=== PATIENT | male | born 1950 | race Caucasian/White ===

== ENCOUNTER → 2022-11-19 10:49 | Outpatient (CLI) | payer OTHER, SELFPAY ==
[2022-11-19 12:46] LABS: COVID19 -Nasal RAPID Negative (Negative)
== END ==
PROVIDERS: PCP Student in an Organized Health Care Education/Training Program; Referring Provider Orthopaedic Surgery; Visit Provider Orthopaedic Surgery
DX: Z20.822 Contact with and (suspected) exposure to COVID-19 (principal)
CPT/HCPCS: 87635; C9803

== ENCOUNTER 2022-11-22 09:00 | Day surgery (SDC) | payer OTHER, SELFPAY ==
[2022-11-14 08:22] VITALS: BMI 28.0
[2022-11-22] VITALS (19 sets, daily range): BP systolic 101–138; BP diastolic 61–92; PULSE 56–88; RESP 8–18; TEMP 35.8–36.7; O2SAT 82–100; BMI 26.9
--- NOTE | 2022-11-22 09:18 | DI.RAD.S_ITS ---
PROCEDURE: XR HIP W PEL IF DONE RT 2V INDICATIONS: RIGHT ANTERIOR HIP TECHNIQUE: Intraoperative spot view(s) of the hip acquired. COMPARISON: None. FINDINGS: Intraoperative spot images demonstrate placement of right hip arthroplasty. IMPRESSION: Right hip arthroplasty intraoperative imaging. Dictated by: Maldonado Simons M.D. on 11/22/2022 at 15:27 Approved by: Maldonado Simons M.D. on 11/22/2022 at 15:27
[2022-11-22] MEDS: ACETAMINOPHEN 325 MG TABLET 975 MG PO (09:48)
[2022-11-22] MEDS: CELECOXIB 200 MG CAPSULE PO (09:50)
[2022-11-22] MEDS: LACTATED RINGERS 1,000 ML 42 ML IV (10:10)
[2022-11-22] MEDS: VANCOMYCIN 1,000 MG/200 ML PIGGYBACK 200 MG IV (10:11)
--- NOTE | 2022-11-22 11:00 | PM.PREOP ---
Pre-operative Note COVID-19 COVID-19 status: Negative Interval Note History & Physical reviewed/Exam performed by Physician: Yes Changes to H&P: No
--- NOTE | 2022-11-22 11:00 | PM.OP.1 ---
Operative Date/Time/Diagnoses Date of procedure: 11/22/22 Time of procedure: 11:20 Pre-op diagnosis: Right hip OA Post-op diagnosis: same Procedure & Clinicians Procedure: Right total hip arthroplasty anterior approach Same procedure as scheduled: Yes Indications: The patient has had progressively worsening right hip pain with radiographic changes consistent with arthritis. Non-operative management has failed and the patient has requested total hip replacement. The risks, benefits and alternatives to surgery were discussed with the patient prior to proceeding. Risks discussed included, but were not limited to, failure to relieve pain, leg length discrepancy, dislocation, stiffness, infection, nerve damage, deep venous thrombosis, pulmonary embolism, stroke, coma, heart attack, permanent paralysis and , as well as the potential need for eventual revision of the prosthetic. Surgeon: Miryam Guallpa Mail Reader: Johana Velazquez Anesthesia Type: General and Spinal Operative Notes Findings: Severe right hip OA, adequate stability, Closure Type: primary Specimen(s): none sent Prosthetic devices, grafts, tissues, transplants, or devices: Guallpa and nephew anthology size 9 high offset, 54 mm R3 cup, neutral poly liner, two 6.5 mm screws Estimated Blood Loss (mL): 250 Blood products transfused: none Procedure in detail: The patient was brought to the operating room. Patient was carefully positioned in the supine position. Time-out was performed and antibiotics were given. Anesthesia was induced. He was positioned in the on the table in order to allow hyperextension of the hip. The right lower extremity was prepped and draped in a standard sterile fashion. An anterior right hip incision was made 1 fingerbreadth lateral to the anterior superior iliac spine and extended distally towards the greater trochanter. Dissection was carried out through skin and subcutaneous tissues. Superficial hemostasis was achieved. The fascia over the tensor fascia viviana was defined and incised with a knife. Two Allis clamps were used to grasp the fascia. Tensor fascia viviana was retracted laterally. A gelpi retractor was placed. Dissection was carried out down along the neck. The circumflex vessels were carefully identified and cauterized with the Aqua Mantis. There was good visualization of the femoral neck. A Cobra was placed superior to the neck and the gluteus fibers were carefully stripped from that superior aspect of the capsule. A 2nd retractor was placed along the inferior aspect of the neck. The rectus insertion along the capsule was partially released. A 3rd retractor that was then gently placed over the rim of the acetabulum under the rectus. Capsule was carefully incised and released from the intertrochanteric line circumferentially superior to the mid sagittal line and inferiorly to the mid sagittal line until the lesser trochanter was palpable. A tag stitch was placed both in the superior and inferior limb of the capsular insertion. Along the acetabulum capsule was also released up to the mid sagittal 12:00 position. A portion of the labrum was resected. A saw was used to perform an osteotomy at the level of the intertrochanteric line and the junction of the superior femoral neck leaving approximately 1 finger breath of residual inferior neck above the lesser trochanter. A 2nd cut was made along the femoral neck at the base of the head and a napkin ring of neck was removed. Corkscrew was placed in the femoral head and the head was removed without difficulty. Retractors were then repositioned around the acetabulum. Residual labrum was resected and additional osteophytes were removed. A reamer that was 4 mm below the templated size was placed by hand in the acetabulum and it was reamed to centralize the acetabulum. It was then reamed up to 2 under the templated size and fluoroscopy was brought in to confirm the position of the reaming and depth of reaming. I reamed 1 under the anticipated size. A trial cup was placed and noted that it was appropriately sized and fluoroscopy confirmed position and depth. The component was open and inserted without difficulty fluoroscopic imaging was used to confirm that the cup had been adequately seated and was well positioned. It was further stabilized with a two screws. Neutral poly liner was placed. The cup was tested and noted to be stable. Attention was then directed to the femur. The femur was gently hyperextended additional capsular release was performed as needed in order to allow adequate visualization of the proximal femur with elevation of the femur. Patient was placed in a hyperextended slightly adducted position with maximum external rotation. Box osteotome was used to check for any residual neck as well as sclerotic bone along the trochanter. [place] pepper was placed in the femur. Additional broaching was performed. Canal finder was used to determine the alignment of the canal and position. Size 1 broach was placed. The canal was then appropriately broached up to the templated size as long as there was adequate stability of the broach and serial advancement of the broach without excessive impingement. Specific attention was directed at avoiding varus attempting to direct the distal aspect of the broach more anteriorly and avoiding excessive anteversion. Trial reduction showed acceptable range of motion, good stability, no posterior impingement, gnosticism of leg length and appropriate lateral shuck. I also hyperflexed the hip and checked that there was no impingement anteriorly and there was good stability with flexion, adduction and internal rotation. Marcaine and Exparel were injected. The stem was placed without difficulty. Repeat trial reduction and x-ray showed acceptable overall position, length, and no evidence of the femoral fracture. Final head was placed. Wound was meticulously irrigated with normal saline. The hip was reduced and additional Exparel and Marcaine were injected. The capsule was closed with interrupted nonabsorbable sutures. The fascia of the tensor was closed with interrupted and running Vicryl. No drain was placed. Any tensor fascia viviana muscle that appeared to be contused or injured which was a minimal amount was carefully resected. Capsule around the tensor was injected with Exparel and Marcaine. The skin was closed with barbed stitches for the subcutaneous tissue and skin. We also used surgical glue. The wound was dressed sterilely. Brief Betadine soak was also used and was meticulously irrigated with normal saline. Patient was transferred to recovery room in satisfactory condition. Complications: none Post-operative Condition: stable Disposition: Acute Care Plan for aftercare: The patient will be maintained on a standard total hip replacement protocol with weight bearing as tolerated and anterior hip precautions. The patient will receive Aspirin and sequential compression devices for DVT prophylaxis. The patient will be discharged home when safe for the home environment.
[2022-11-22] MEDS: CEFAZOLIN 2 GM/100 ML PREMIX 100 ML IV ×2 (11:45→20:18)
[2022-11-22] MEDS: TRANEXAMIC ACID 1,000 MG VIAL 2000 MG INJ ×2 (12:24→14:10)
[2022-11-22] MEDS: BUPIVACAINE LIPOSOME 266 MG/20 ML VIAL INJ ×2 (12:24→12:25)
[2022-11-22] MEDS: BUPIVACAINE 0.5% W/ EPI (PF) 30 ML VIAL INJ (12:26)
--- NOTE | 2022-11-22 12:35 | SUR.OPER ---
Patient supine on padded Wenden table, one arm on padded arm board at <90, other arm padded and secured with tape across patient's chest, both legs secured in padded traction boots and positioned per surgeon, padded post at patient's groin, pressure points checked and padded.
[2022-11-22] MEDS: OXYCODONE/ACETAMINOPHEN 5/325 TABLET 1 TAB PO (15:17)
--- NOTE | 2022-11-22 15:26 | SUR.PHASEI ---
Computer locked. Unable to use previous order for Ativan. . Ativan 0.25mg re-ordered for 1 time dose.
[2022-11-22] MEDS: LORazepam 2 MG/ML INJ 0.25 MG IV (15:35)
[2022-11-22] MEDS: OXYCODONE IR 10 MG TABLET PO (17:12)
[2022-11-22] MEDS: ONDANSETRON 4 MG/2 ML INJ IV (17:16)
[2022-11-22] MEDS: LACTATED RINGERS 1,000 ML 125 ML IV (17:21)
[2022-11-22] MEDS: ACETAMINOPHEN 325 MG TABLET 650 MG PO (18:06)
[2022-11-22] MEDS: IBUPROFEN 400 MG TABLET PO (18:06)
[2022-11-22] MEDS: ASPIRIN EC 81 MG TABLET PO (20:18)
[2022-11-22] MEDS: DOCUSATE 100 MG CAPSULE PO (20:19)
[2022-11-23] MEDS: LACTATED RINGERS 1,000 ML 125 ML IV (00:46)
[2022-11-23] MEDS: ACETAMINOPHEN 325 MG TABLET 650 MG PO ×3 (01:50→11:22)
[2022-11-23] MEDS: IBUPROFEN 400 MG TABLET PO ×3 (01:50→11:22)
[2022-11-23] MEDS: CEFAZOLIN 2 GM/100 ML PREMIX 100 ML IV (03:19)
[2022-11-23 04:24] VITALS: BP 120/65; PULSE 71; RESP 18; TEMP 36.9; O2SAT 98
[2022-11-23] MEDS: PANTOPRAZOLE DR 20 MG TABLET PO (06:18)
--- NOTE | 2022-11-23 07:06 | PM.DS.1 ---
History of Present Illness History of Present Illness Date Patient Seen: 11/23/22 Time Patient Seen: 07:06 Chief complaint: NIECY anterior Right *OPB* Narrative: Operative Date/Time/Diagnoses Date of procedure: 11/22/22 Time of procedure: 11:20 Pre-op diagnosis: Right hip OA Post-op diagnosis: same Procedure & Clinicians Procedure: Right total hip arthroplasty anterior approach Same procedure as scheduled: Yes Indications: The patient has had progressively worsening right hip pain with radiographic changes consistent with arthritis. Non-operative management has failed and the patient has requested total hip replacement. The risks, benefits and alternatives to surgery were discussed with the patient prior to proceeding. Risks discussed included, but were not limited to, failure to relieve pain, leg length discrepancy, dislocation, stiffness, infection, nerve damage, deep venous thrombosis, pulmonary embolism, stroke, coma, heart attack, permanent paralysis and , as well as the potential need for eventual revision of the prosthetic. Surgeon: Miryam Guallpa Tanker Service Attendant: Johana Velazquez Anesthesia Type: General and Spinal Operative Notes Findings: Severe right hip OA, adequate stability, Closure Type: primary Specimen(s): none sent Prosthetic devices, grafts, tissues, transplants, or devices: Guallpa and nephew anthology size 9 high offset, 54 mm R3 cup, neutral poly liner, two 6.5 mm screws Estimated Blood Loss (mL): 250 Blood products transfused: none Discharge Providers Provider Discharge Date: 11/23/22 Primary care physician: Lloyd Gauthier DO Consults: 11/22/22 09:18 Consult to Anesthesiology Routine Comment: Consulting Provider: Anesthesiologist Reason for consultation: Regional block for post operative pain control 11/22/22 16:22 Consult to Discharge Planning Routine Comment: Consult to Physical Therapy Evaluate & Treat Comment: Physician Instructions: post op NIECY protocol Discharge provider: Sendy Chin PA-C Summary Hospital Course Discharge Diagnosis: Right hip osteoarthritis, s/p right total hip arthroplasty Hospital Course: Mr Osman's hospital course was unremarkable. On POD# 1 he was feeling well and wanted to go home. He was eating and voiding without difficulty. He had not yet been out of bed with PT. His pain was well-controlled with oral medications. He has all of his post-operative medications at home. Exam Vital Signs (past 8 hours): - 11/22/22 23:59 11/23/22 04:24 Temperature 98.1 F 98.5 F Pulse Rate 82 71 Respiratory Rate 18 18 Blood Pressure 103/66 120/65 Pulse Oximetry 97 98 Oxygen Flow Rate 0 2 Oxygen Delivery Method Nasal Cannula Oxygen Flow Rate 2 Narrative Exam Narrative: 5/5 strength in hip flexors, quadriceps, hamstrings, DF, PF, EHL; sensation to light touch intact throughout RLE. Calf soft, compressible, nontender and without palpable cords or masses. Aquacel dressing CDI. [facility] Medical History (Updated 11/14/22 @ 09:31 by Nancy Glez RN) COPD (chronic obstructive pulmonary disease) COVID-19 virus infection (04/2022) Elevated cholesterol GERD (gastroesophageal reflux disease) Hiatal hernia HTN (hypertension) Lymph nodes enlarged Osteoarthritis Testicular cancer Surgical History (Updated 11/14/22 @ 09:17 by Nancy Glez RN) Hx of colonoscopy Hx of removal of testicle (1983) Social History household members: spouse Smoking Status: Former smoker alcohol intake: former Discharge Assessment & Plan Assessment and Plan Assessment: Right hip osteoarthritis, s/p right total hip arthroplasty Plan of Treatment: Discharge home after PT if PT agrees. Pt has postop medications at home. F/u in office as scheduled. Discharge Plan Discharge Plan Patient Disposition: Home Discharge orders & Medications Discharge Orders: Discharge (Order); Ordered 11/23/22 Ordered By: Sendy Chin Prescriptions: Continued acetaminophen 650 mg Tablet Extended Release 1,300 mg PO DAILY PRN (Reason: Pain) ibuprofen 200 mg Tablet 400 - 800 mg PO DAILY PRN (Reason: Pain) omeprazole 20 mg Tablet,Delayed Release (Dr/Ec) 20 mg PO DAILY Follow up/Referrals: Lloyd Gauthier DO [Primary Care Provider] - Miryam Guallpa MD [Physician] - As previously scheduled (Follow up w/ Dr Guallpa on 12/08/2022 @ 11:00 am at [facility] office in [place].) Diet/Activity/Treatments Diet: Diet as Tolerated Activity: Weight-bearing as tolerated on right. Anterior hip precautions. Cold/Heat Therapy: Ice to hip as needed for pain. Skin/Wound/Dressing Care Report to your healthcare provider any signs of infection, such as:: chills, fever, night sweats, unusual drainage and unusual redness Dressing: May shower. Leave Aquacel dressing in place until follow up appointment. No bathing or otherwise soaking incision. Call office if Aquacel dressing becomes saturated inside. Visit Report/Discharge Packet Instructions: DI for Hip Replacement Stand Alone Forms: Surgery Discharge Discharge Data Primary Care Provider: Lloyd Gauthier Attending Provider: Miryam Guallpa
[2022-11-23 07:18] LABS: Hematocrit 34.7 % (41-53); Hemoglobin 11.9 g/dL (13.5-17.5)
--- NOTE | 2022-11-23 08:43 | PT.IIE ---
Current Diagnoses Unilateral primary osteoarthritis, right hip (11/22/22) Surgery Performed Operation Date: 11/22/22 11:15 Actual Procedures p Total Hip Arthroplasty/Anterior Approach(Right) - Miryam Guallpa MD Surgical History (Last Updated 11/14/22 @ 09:17 by Nancy Glez, RN) Hx of colonoscopy Hx of removal of testicle (1983) Medical History (Last Updated 11/14/22 @ 09:31 by Nancy Glez RN) COPD (chronic obstructive pulmonary disease) COVID-19 virus infection (04/2022) Elevated cholesterol GERD (gastroesophageal reflux disease) Hiatal hernia HTN (hypertension) Lymph nodes enlarged Osteoarthritis Testicular cancer Physical Therapy Inpatient Evaluation/Re-Eval M1 PT/OT-IP Prior Functional Status Start: 11/23/22 08:16 Freq: NEEDED Status: Active Protocol: Document 11/23/22 08:18 AMB (Rec: 11/23/22 08:43 AMB [id number]) Medical Review Prior Functional Status Medical History Reviewed Yes Diet/Fluid Consistency Regular Communication WNL Mobility and Gait Pt ambulated with a limp for about 2 years Activities of Daily Living and IADL's independent with all ADLs, drives Social History Household Members spouse Living Arrangements House Number of Stairs To Enter/Railing? 7 stairs R railing. Split level. Home Environment Standard Height Toilet Home Equipment Front Wheel Walker,Straight Cane Employment Status Retired M2 PT-IP Current Condition Start: 11/23/22 08:16 Freq: NEEDED Status: Active Protocol: Document 11/23/22 08:18 AMB (Rec: 11/23/22 08:43 AMB [id number]) Physical Therapy Current Condition Current Condition Evaluation Date 11/23/22 Treatment Diagnosis R NIECY Onset Date 11/22/22 M3 PT-IP Subjective Start: 11/23/22 08:16 Freq: NEEDED Status: Active Protocol: Document 11/23/22 08:18 AMB (Rec: 11/23/22 08:43 AMB [id number]) Subjective Physical Therapy Visit Type Type Initial Evaluation Visit Start Time 08:15 Visit Stop Time 09:00 Total Visit Minutes 45 Physical Therapy Visit Comments Patient Comments Pt ready to get up to, wants to go home. Therapy Pain Assessment Pain When Pain Assessed During Mobility Pain Present Pain Present Pain Reported Location Right hip Intensity 2 M4 PT-IP Mobility and Gait Start: 11/23/22 08:16 Freq: NEEDED Status: Active Protocol: Document 11/23/22 08:18 AMB (Rec: 11/23/22 08:43 AMB [id number]) PT-Bed Mobility Assessment Rolling Type of Rolling Roll to Left Level of Assist Standby Assistance,1 Person Assistance Supine to Sit Supine to Sit Standby Assistance PT-Transfer Assessment Sit to and From Stand Sit to and from Stand Contact Guard Assistance Equipment Transfer Assistive Device Bed Rail,Gait Belt Transfers Transfer Destination Bed,Chair,Toilet Transfer Technique Stand Step Pivot Transfer Ability Level of Assist Standby Assistance Comments Mobility Comments Pt needed cues for bed mobility, but was able to perform with SBA. Cues for sitting down in chairm heavy use of UEs. Gait Assessment Gait Gait Assistance Required: Contact Guard Assist Distance (Feet) 150 Assistive Devices Assistive Device Gait Belt Gait Deviations General Gait Pattern Antalgic,Decreased Stride Length Factors Limiting Gait Function Factors Limiting Gait Function Decreased Activity Tolerance, Decreased Strength,Pain Comments Gait Comments Pt ambulating with FWW and CGA , antalgic gait but otherwise doing well. Pt walked to bathroom with FWW and CGA, then walked in hallway to stairs and back. Stair Climbing Assessment Evaluation Level of Assist On Stairs Contact Guard Assistance Devices Stair Climbing Assistive Devices Front Wheel Walker Technique/Endurance Stair Climbing Direction Ascend and Descend Stair Climbing Technique Step to Step Number of Steps Climbed 3 Query Text: Stair Climbing Set # Repetitions (reps) 3 Comments Stair Climbing Comments Pt needed cues for step to ascending and descending foot placement. Used 1 rail on the right to ascend 1 rail on L to descend. PT-Balance Assessment Sitting Balance and Reactions Static Sitting Balance Ability Normal Dynamic Sitting Balance Ability Normal Standing Balance and Reactions Static Standing Balance Ability Good Dynamic Standing Balance Ability Fair M5 PT-IP Objective Assessments Start: 11/23/22 08:16 Freq: NEEDED Status: Active Protocol: Document 11/23/22 08:18 AMB (Rec: 11/23/22 08:43 AMB [id number]) Orientation Orientation/Cognition Level of Alertness Alert Strength Upper Extremity Strength Assessment Within Functional Limits Lower Extremity Strength Assessment Right Impaired Hip 3 Knee 4 Ankle 4 M6 PT-IP Treatment Start: 11/23/22 08:16 Freq: NEEDED Status: Active Protocol: Document 11/23/22 08:18 AMB (Rec: 11/23/22 08:43 AMB [id number]) Physical Therapy Treatment Exercises Exercises Ankle Pumps,Gluteal Sets Education Education Provided Precautions,Post-Op Packet, Safety M7 PT-IP Assessment and Plan Start: 11/23/22 08:16 Freq: NEEDED Status: Active Protocol: Document 11/23/22 08:18 AMB (Rec: 11/23/22 08:43 AMB [id number]) PT Summary Assessment and Plan Potential Rehabilitation Potential Good Status of Condition at Evaluation Evolving Summary Impairments Pain,Strength,Bed Mobility, Transfers,Gait,Activity Tolerance Progress Towards Goals Progressing Toward Goals Assessment Summary Alex was able to perform bed mobility with SBA and cues for body mechanics, then walked with FWW and gait belt to bathroom with antalgic gait, able to stand at toilet and to wash hands without UE support . Then ambulted to the stairs , ascend and descend 3 stairs x 3 with 1 railing with CGA and heavy cues for sequencing. Ambulated back to room with FWW and needed CGA and cues for controlled sit to recliner , call light placed pt waiting for breakfast BUSINESS ANALYSIS SPECIALIST informed. Pt lives in a split level with his . Cleared to return home with 's assistance when medically cleared. Goals Bed Mobility Goal Independent Transfer Goal Standby Assistance Gait Goal Standby Assistance Gait Distance 100 Days to Meet Goals 1 Frequency of Treatment Frequency Of Treatment Discharge Treatment Plan Physical Therapy Treatment Plan Bed Mobility Training,Transfer Training,Gait Training, Therapeutic Exercise,Balance Retraining,Post Op Education Other Recommendations and Next Treatment Pt cleared by PT to return Focus home when medically cleared Precautions Anterior Hip Precautions No Hip Extension,No Hip External Rotation Weight Bearing Status Weight Bearing Status Weight Bear as Tolerated Recommendations To Nursing Amount of Assist Needed 1 Person Assist Discharge Recommendations PT Discharge Recommendations Home with Assistance, Outpatient PT
[2022-11-23] MEDS: ASPIRIN EC 81 MG TABLET PO (08:44)
[2022-11-23] MEDS: DOCUSATE 100 MG CAPSULE PO (08:46)
[2022-11-23 09:00] VITALS: BP 107/72; PULSE 75; RESP 16; TEMP 36.4; O2SAT 95
--- NOTE | 2022-11-23 11:55 | CM.DANOTE ---
DCP: Case received, EMR reviewed and met with patient. Introduced self and role. Was able to obtain information regarding patient's baseline activity status prior to surgery. DCP assessment completed with information currently available. Patient is a 72 year old male who admitted yesterday morning to the care of the orthopedic team. PCP: Dr. Gauthier. Payer: confirmed: [employer]. Patient came to the hospital via private vehicle for a surgical procedure. Patient had right total hip arthroplasty, anterior approach. Patient has history of right hip OA. Met with patient in his room. He is alert and oriented, pleasant. He was sitting up in his chair. He had worked with [employer] yesterday. Confirmed that he resides in [place], with spouse, Marley. He uses no DME at baseline, drives, recently retired as a truck/bridge saw operator. P: Patient has discharge orders for home today. Mayelin Macedo RN/Oceanography Teacher Discharge Planning/Care Management CM Discharge Assessment Start: 11/23/22 11:52 Freq: Status: Active Protocol: Document 11/23/22 11:54 (Rec: 11/23/22 11:55 [id number]) Discharge Planning Assessment Assigned Furnace Feeder Mayelin Macedo RN/Oceanography Teacher Advance Directives? No History Provided By Patient Prior Living Arrangements House Household Members spouse Type of transporation used prior to Drives own vehicle admit Independent with ADL's Yes Is patient alert and oriented? Yes Caregiver for Another No Barriers to Discharge No Discharge Plan Home Transportation Arrangement Spouse Referrals Initiated None needed Whiteboard Updated in Patient Room with Yes name and ext. # of Furnace Feeder Review Status In Process Next Review Type Continued Stay Review Pre-Anesthesia Assessment Start: 11/14/22 08:22 Freq: Status: Active Protocol: Document 11/14/22 08:22 [facility] (Rec: 11/14/22 08:43 [facility] [id number]) Pre-Anesthesia Assessment Patient Information Reviewed Via Phone Assessment Assessment Completed With Patient Diagnostic Results BMP/CMP,CBC,EKG,Urinalysis Comment Outside labs/ECG scanned, COVID screen @ 11/19/22 Primary Care Provider Lloyd Gauthier Seen Specialist in Last 12 Months Yes Specialist Seen Orthopedist Primary Language Frisian Data Manager Required No Height 5 ft 9 in Weight 190 lb Body Mass Index (BMI) 28.0 Hearing Ability Normal Visual Assist Magnifying Glass Dentition Type Teeth, Natural Present,Teeth, Missing Barriers to Learning Auditory Hx Anesthesia Reactions No Hx Family Anesthesia Reaction No Hx Malignant Hyperthermia No Hx Blood Transfusions No Anesthesia Review Requested No alcohol intake former Smoking Status Former smoker Tobacco type cigarettes how long ago did patient quit smoking Quit approx 30 years ago Substance Use Type does not use Pain Present Pain Reported Musculoskeletal Symptoms Abnormal Gait,Back Pain, Difficulty Walking,Joint Pain History of Falling (Recent or History of No ) Patient is completely paralyzed or No completely immobile Mental Status Oriented to own ability Is patient on oxygen? No Does patient have FELIX/SOB Yes: r/t COPD Hx Sleep Apnea No Currently Taking a Beta Ignacio No Hx Chest Pain No Hx SOB Yes: r/t COPD Hx Syncope or Dizziness No Anti-Coagulant Therapy No Has a Supervisor Hard Candy No Cardiac Testing No Hx Pacemaker/ICD No Pacemaker Rep Required? No Diet Type At Home Regular Dysphagia No Gastrointestinal Symptoms Reflux Urinary Catheter Present No Hx Urinary Self Catheterization No Diabetes No Hx Drug Resistant Organism No Presence of External or Internal Medical No Devices Have you had any close contact with No someone diagnosed with COVID-19? Received a COVID vaccine? Yes Received all doses? Yes Marital Status Lives With spouse Current Living Arrangements House Number of Floors (Floors) Two Floors Support System Spouse Does the Patient Have Assistance After Yes Surgery Patient Discharge Plan Description Return Home Comment Pt advised possible same day surgery per surgeon Feels Safe in Current Environment Yes Been Physically Hurt or Threatened By a No Person in Current Environment Do you have thoughts of harming yourself None or others? Are you currently considering suicide? No Do you have a plan to hurt yourself or No Plan others? Do You Have Any Spiritual Beliefs That No May Affect Your HC Choices? Do You Have Any Cultural Practices That No May Affect Your HC Choices? Comment Surinder Who Can We Speak to About Patient's Care Family, friends Identifying Code for Release of Patient Declines to issue Information Health Care Proxy/Next of Kin Sadie () Health Care Proxy Emergency Contact Name Sadie () Emergency Contact Advance Directives? No Power of Machine Engraver No PAC Instructions Durable medical equipment, Medications to take/avoid, Nasal antibiotic,No ETOH/ petroleum product on skin DOS, NPO,Pre-surgical wash,Sturdy shoes/comfortable clothes,Do not bring valuables and remove jewelry
--- NOTE | 2022-11-23 12:52 | PC.NURSE ---
Pt is A&OX3, VSS, afebrile on RA. He reports pain is very minimal today at 2/10 and well controlled with scheduled tylenol and ibuprofen. He has full sensation to RLE. Aquacel c/d/I. He denies n/v and tolerates 100% of breakfast well. He is cleared by ortho PA and cleared by PT for discharge home today with FWW. He verbalizes understanding of discharge instructions, medications, activity restrictrictions, s/sx of infection/ complication, site care and follow up appointment. He is educated and is confirmed with PA Sendy Chin to take baby aspirin 81 mg BID. He is escorted via w/ch to private vehicle with his for discharge home with belongings and FWW at approximately 1130 a.m.
== END 2022-11-23 12:15 | disposition home or self-care (01) ==
LOC: OR 09:04 → AC 09:04
PROVIDERS: PCP Student in an Organized Health Care Education/Training Program; Referring Provider Orthopaedic Surgery; Visit Provider Orthopaedic Surgery
PROC: (CPT 27130; principal; 2022-11-22 11:15)
DX: M16.11 Unilateral primary osteoarthritis, right hip (principal); J44.9 Chronic obstructive pulmonary disease, unspecified; K21.9 Gastro-esophageal reflux disease without esophagitis
CPT/HCPCS: 27130; 73502; 76000; 85014; 85018; 97161; C1776; C9290; J0690; J1100; J2060; J2250; J2405; J2704; J3010